=== PATIENT | female | born 1955 | race Caucasian/White ===

== ENCOUNTER 2021-07-04 16:19 | Outpatient (CLI) | payer OTHER, SELFPAY ==
--- NOTE | ~2021-07-04 | XR_ITS ---
EXAMINATION: XR chest 2V DATE: 07/04/2021 16:56 INDICATION: Shortness of breath. Cough. TECHNIQUE: Frontal and lateral views of the chest were obtained. COMPARISON: None. FINDINGS: There is a moderate-sized hiatal hernia. A calcified right lung nodule and calcified right hilar lymph node are consistent with old granulomatous disease. No pneumonia, pleural effusion, or pn eumothorax. The heart size is normal. IMPRESSION: 1. Moderate-sized hiatal hernia. Reviewed, dictated and finalized at location A.
== END 2021-07-04 16:20 | disposition home or self-care (01) ==
DX: R06.02 Shortness of breath (principal)
CPT/HCPCS: 71046